=== PATIENT | female | born 1975 | race African-American/Black ===

== ENCOUNTER 2017-07-20 11:42 | Emergency (ER) | payer OTHER ==
[~2017-07-20] VITALS: Ht 170.2 cm; Wt 115.3 kg
[~2017-07-20 11:42] MED LIST: AMOXICILLIN500 M1 PO; MOTRIN600 MG PO; no home medications
[2017-07-20 12:46] VITALS: BP 159/90
== END 2017-07-20 12:49 | disposition home or self-care (01) ==
LOC: EME 11:42
DX: J06.9 Acute upper respiratory infection, unspecified (principal); H92.01 Otalgia, right ear
CPT/HCPCS: 99281; 99282